=== PATIENT | male | born 1960 | race African-American/Black ===

== ENCOUNTER 2018-10-17 18:13 | Inpatient (IN) ==
[2018-10-17] MEDS ORDERED: ASPIRIN CHEW 81 MG TABLET PO STA (18:19)
[2018-10-17] MEDS ORDERED: HEPARIN 1,000 UNIT/1 ML VIAL IV STA (18:21)
[2018-10-17] MEDS ORDERED: HEPARIN 5,000 UNIT/1 ML VIAL ONE (18:21)
[2018-10-17 18:27] LABS: Basophils # 0.1 10*3/uL (0.0-0.2); Basophils % 0.8 % (0.0-0.8); Eosinophils # 0.2 10*3/uL (0.0-0.87); Eosinophils % 2.2 % (0.00-10.9); Hemoglobin 14.7 GM/DL (14.0-18.0); Immature Granulocytes % 0.2 %; Immature Granulocytes Absolute 0.02 #; Lymphocytes # 4.8 10*3/uL (1.4-4.0); Lymphocytes % 52.6 % (21.2-54.2); Mean Corpuscular HGB Conc 33.4 GM/DL (32-36); Mean Corpuscular Hemoglobin 31 PG (27-34); Mean Corpuscular Volume 91.9 FL (87-102); Mean Platelet Volume 9.3 FL (9.6-12.0); Monocytes # 0.6 10*3/uL (0.11-0.8); Monocytes % 6.9 % (1.7-12.7); Neutrophils # 3.4 10*3/uL (1.4-7.4); Neutrophils % 37.3 % (38.7-73.9); Platelet Count 344 T/CUMM (130-400); Red Blood Count 4.79 MC/CUMM (3.8-5.5); Red Cell Distribution Width 13.1 % (9.3-17.3); White Blood Count 9.2 T/CUMM (4-12)
[2018-10-17] MEDS ORDERED: SODIUM CHLORIDE 0.9% 1,000 ML IV STA (18:30)
[2018-10-17 18:45] LABS: Alanine Aminotransferase 28 U/L (16-61); Albumin 3.3 G/DL (3.4-5.0); Alkaline Phosphatase 55 U/L (45-117); Aspartate Amino Transferase 18 U/L (0-37); Bilirubin,Total < 0.39 MG/DL (0.2-1.0); Blood Urea Nitrogen 14 MG/DL (7-18); Calcium 8.4 MG/DL (8.5-10.1); Glucose 142 MG/DL (74-106); Potassium 3.6 MMOL/L (3.5-5.1); Sodium 143 MMOL/L (136-145); Total Protein 6.1 G/DL (6.4-8.3)
[2018-10-17 19:26] LABS: Eosinophils 5 % (0-10); Lymphocytes 48 % (20-55); Segmented Neutrophils 40 % (50-85); Total Cells Counted 100
[2018-10-17 19:27] LABS: Platelet Estimate Normal
[2018-10-17] MEDS ORDERED: ZALEPLON 5 MG CAPSULE PO PRN (19:36)
[2018-10-17] MEDS ORDERED: NITROGLYCERIN SL 0.4 MG TABLET SL PRN (19:36)
[2018-10-17] MEDS ORDERED: ACETAMINOPHEN 325 MG TABLET PO PRN (19:36)
[2018-10-17] MEDS: TIROFIBAN 5,000 MCG/100 ML PREMIX IV SCH (20:23)
[2018-10-17] MEDS ORDERED: TICAGRELOR 90 MG TABLET PO SCH (21:00)
[2018-10-17 21:35] LABS: CKMB % 6.7 %
[2018-10-17] MEDS: METOPROLOL TARTRATE 25 MG TABLET PO SCH (22:00)
[2018-10-17] MEDS: HYDROmorphone 2 MG/1 ML VIAL IV PRN (22:10)
[2018-10-18 01:23] LABS: Barbiturates Screen,Urine Negative (Negative); Benzodiazepines Screen,Urine Positive (Negative); Cannabinoid Screen,Urine Negative (Negative); Opiate Screen,Urine Positive (Negative); Phencyclidine Screen,Urine Negative (Negative)
[2018-10-18] MEDS: HYDROmorphone 2 MG/1 ML VIAL IV PRN ×3 (03:30→13:59)
[2018-10-18] MEDS: TIROFIBAN 5,000 MCG/100 ML PREMIX IV SCH ×2 (03:47→11:40)
[2018-10-18 04:48] LABS: Basophils % 0.3 % (0.0-0.8); Eosinophils % 0.1 % (0.00-10.9); Hematocrit 43.3 VOL% (42.0-52.0); Hemoglobin 14.2 GM/DL (14.0-18.0); Immature Granulocytes % 0.5 %; Immature Granulocytes Absolute 0.06 #; Lymphocytes # 1.6 10*3/uL (1.4-4.0); Lymphocytes % 13.6 % (21.2-54.2); Mean Corpuscular HGB Conc 32.8 GM/DL (32-36); Mean Corpuscular Hemoglobin 30 PG (27-34); Mean Corpuscular Volume 91.7 FL (87-102); Mean Platelet Volume 9.8 FL (9.6-12.0); Monocytes # 0.8 10*3/uL (0.11-0.8); Monocytes % 6.9 % (1.7-12.7); Neutrophils % 78.6 % (38.7-73.9); Platelet Count 334 T/CUMM (130-400); Red Blood Count 4.72 MC/CUMM (3.8-5.5); Red Cell Distribution Width 13.2 % (9.3-17.3); White Blood Count 11.4 T/CUMM (4-12)
[2018-10-18 06:29] LABS: Blood Urea Nitrogen 12 MG/DL (7-18); CKMB % 8.3 %; Calcium 8.5 MG/DL (8.5-10.1); Glucose 107 MG/DL (74-106); Osmolality,Calculated 278.4 MOS/KG (273-304); Potassium 4.4 MMOL/L (3.5-5.1); Sodium 140 MMOL/L (136-145)
[2018-10-18 06:50] LABS: Troponin I > 200.000 NG/ML (0.00-0.045)
[2018-10-18] MEDS: METOPROLOL TARTRATE 25 MG TABLET PO SCH ×2 (08:51→16:21)
[2018-10-18] MEDS: TICAGRELOR 90 MG TABLET PO SCH ×2 (08:52→21:30)
[2018-10-18] MEDS: ASPIRIN EC 81 MG TABLET PO SCH (08:52)
[2018-10-18] MEDS: ROSUVASTATIN 20 MG TABLET PO SCH (08:52)
[2018-10-18] MEDS: NICOTINE 21 MG/24 HR PATCH TRANSDERM SCH (08:59)
[2018-10-18] MEDS: COLCHICINE 0.6 MG CAPSULE PO SCH ×2 (09:01→21:30)
[2018-10-18 11:33] LABS: CKMB % 7.8 %
[2018-10-18 11:36] LABS: Troponin I > 200.000 NG/ML (0.00-0.045)
[2018-10-18] MEDS: CLORAZEPATE 3.75 MG TABLET PO PRN (14:01)
[2018-10-18] MEDS: ONDANSETRON 4 MG/2 ML VIAL IV PRN ×2 (14:01→18:50)
[2018-10-18] MEDS ORDERED: KETOROLAC 30 MG/1 ML VIAL IV ONE (14:09)
[2018-10-18] MEDS ORDERED: MORPHINE 4 MG/1 ML VIAL IV PRN (14:09)
[2018-10-18] MEDS ORDERED: LORazepam 0.5 MG TABLET PO PRN (15:43)
[2018-10-18] MEDS: LISINOPRIL 2.5 MG TABLET PO SCH ×2 (16:42→21:29)
[2018-10-18] MEDS: diphenhydrAMINE CAP 25 MG CAPSULE PO PRN (21:29)
[2018-10-18] MEDS: METOPROLOL SUCCINATE XL 25 MG TABLET PO SCH (21:30)
[2018-10-19 04:39] LABS: Basophils % 0.2 % (0.0-0.8); Eosinophils % 0.4 % (0.00-10.9); Immature Granulocytes % 0.4 %; Immature Granulocytes Absolute 0.04 #; Lymphocytes # 1.4 10*3/uL (1.4-4.0); Lymphocytes % 12.6 % (21.2-54.2); Mean Corpuscular HGB Conc 32.6 GM/DL (32-36); Mean Corpuscular Hemoglobin 30 PG (27-34); Mean Corpuscular Volume 93.3 FL (87-102); Mean Platelet Volume 10.1 FL (9.6-12.0); Monocytes # 1.1 10*3/uL (0.11-0.8); Monocytes % 9.6 % (1.7-12.7); Neutrophils # 8.8 10*3/uL (1.4-7.4); Neutrophils % 76.8 % (38.7-73.9); Platelet Count 245 T/CUMM (130-400); Red Blood Count 4.61 MC/CUMM (3.8-5.5); Red Cell Distribution Width 13.2 % (9.3-17.3); White Blood Count 11.4 T/CUMM (4-12)
[2018-10-19 05:00] LABS: Calcium 8.6 MG/DL (8.5-10.1); Osmolality,Calculated 276.5 MOS/KG (273-304); Potassium 4.3 MMOL/L (3.5-5.1)
[2018-10-19] MEDS ORDERED: MAGNESIUM HYDROXIDE SUSP 30 ML UDCUP PO PRN (05:47)
[2018-10-19] MEDS: SIMETHICONE CHEW 125 MG TABLET PO PRN ×3 (06:18→14:28)
[2018-10-19] MEDS ORDERED: PANTOPRAZOLE 40 MG VIAL IV ONE (09:10)
[2018-10-19] MEDS: ROSUVASTATIN 20 MG TABLET PO SCH (09:30)
[2018-10-19] MEDS: NICOTINE 21 MG/24 HR PATCH TRANSDERM SCH (09:31)
[2018-10-19] MEDS: ASPIRIN EC 81 MG TABLET PO SCH (09:31)
[2018-10-19] MEDS: TICAGRELOR 90 MG TABLET PO SCH ×2 (09:31→21:40)
[2018-10-19] MEDS: METOPROLOL SUCCINATE XL 25 MG TABLET PO SCH ×2 (09:31→21:40)
[2018-10-19] MEDS: PANTOPRAZOLE 40 MG TABLET PO SCH (09:31)
[2018-10-19] MEDS: ALUMINUM/MAGNES/SIMETH MAX STR 30 ML UDCUP PO PRN ×2 (09:54→14:28)
[2018-10-19] MEDS: LISINOPRIL 2.5 MG TABLET PO SCH ×2 (09:54→21:40)
[2018-10-19] MEDS: CLORAZEPATE 3.75 MG TABLET PO PRN (09:57)
[2018-10-19] MEDS ORDERED: BISACODYL 5 MG TABLET PO PRN (12:09)
[2018-10-19] MEDS: POLYETHYLENE GLYCOL POWDER 17 GM PACK PO SCH (12:51)
[2018-10-19 17:27] LABS: CKMB % 2.2 %
[2018-10-19 17:32] LABS: Troponin I 82.4 NG/ML (0.00-0.045)
[2018-10-19] MEDS ORDERED: FAMOTIDINE 20 MG TABLET PO SCH (21:00)
[2018-10-19] MEDS: diphenhydrAMINE CAP 25 MG CAPSULE PO PRN (21:40)
[2018-10-20 08:00] VITALS: BP 93/67
[2018-10-20] MEDS: NICOTINE 21 MG/24 HR PATCH TRANSDERM SCH (10:37)
[2018-10-20] MEDS: LISINOPRIL 2.5 MG TABLET PO SCH (10:38)
[2018-10-20] MEDS: CLORAZEPATE 3.75 MG TABLET PO PRN (10:39)
[2018-10-20] MEDS: ROSUVASTATIN 20 MG TABLET PO SCH (10:39)
[2018-10-20] MEDS: PANTOPRAZOLE 40 MG TABLET PO SCH (10:39)
[2018-10-20] MEDS: METOPROLOL SUCCINATE XL 25 MG TABLET PO SCH (10:39)
[2018-10-20] MEDS: ASPIRIN EC 81 MG TABLET PO SCH (10:39)
[2018-10-20] MEDS: POLYETHYLENE GLYCOL POWDER 17 GM PACK PO SCH (10:40)
[2018-10-20] MEDS: TICAGRELOR 90 MG TABLET PO SCH (10:40)
== END 2018-10-20 12:14 | disposition home or self-care (01) | DRG 247 ==
LOC: EDUNIT# → EDBD → N.ED 18:13 → N.CL 18:31 → N.CC 20:14 → N.TELEN 10-19 13:17
PROVIDERS: ADMIT Internal Medicine Cardiovascular Disease; ATTEND Internal Medicine Cardiovascular Disease
PROC: CLCCHCL (ICD-10-PCS; 2018-10-17 19:15)

== ENCOUNTER 2018-11-29 16:02 | Observation (INO) ==
[2018-11-29] MEDS ORDERED: ASPIRIN 325 MG TABLET PO STA (16:33)
[2018-11-29 16:58] LABS: Basophils % 0.7 % (0.0-0.8); Eosinophils # 0.3 10*3/uL (0.0-0.87); Eosinophils % 4.6 % (0.00-10.9); Hemoglobin 13.7 GM/DL (14.0-18.0); Immature Granulocytes % 0.3 %; Immature Granulocytes Absolute 0.02 #; Lymphocytes # 2.7 10*3/uL (1.4-4.0); Lymphocytes % 44.7 % (21.2-54.2); Mean Corpuscular HGB Conc 33.4 GM/DL (32-36); Mean Corpuscular Hemoglobin 30 PG (27-34); Mean Corpuscular Volume 90.3 FL (87-102); Mean Platelet Volume 11.1 FL (9.6-12.0); Monocytes # 0.6 10*3/uL (0.11-0.8); Monocytes % 10.4 % (1.7-12.7); Neutrophils # 2.4 10*3/uL (1.4-7.4); Neutrophils % 39.3 % (38.7-73.9); Platelet Count 186 T/CUMM (130-400); Red Blood Count 4.54 MC/CUMM (3.8-5.5); Red Cell Distribution Width 12.8 % (9.3-17.3); White Blood Count 6.1 T/CUMM (4-12)
[2018-11-29 17:07] LABS: Alanine Aminotransferase 28 U/L (16-61); Alkaline Phosphatase 83 U/L (45-117); Aspartate Amino Transferase 20 U/L (0-37); Bilirubin,Total < 0.39 MG/DL (0.2-1.0); Blood Urea Nitrogen 16 MG/DL (7-18); Calcium 8.7 MG/DL (8.5-10.1); Glucose 84 MG/DL (74-106); Osmolality,Calculated 280.3 MOS/KG (273-304); Potassium 3.9 MMOL/L (3.5-5.1); Sodium 141 MMOL/L (136-145); Total Protein 7.7 G/DL (6.4-8.3)
[2018-11-29] MEDS ORDERED: ONDANSETRON 4 MG/2 ML VIAL IV PRN (20:19)
[2018-11-29] MEDS ORDERED: DOCUSATE SODIUM 100 MG CAPSULE PO PRN (20:19)
[2018-11-29] MEDS ORDERED: MAGNESIUM SULF RIDER 2 GM in PREMIX 1 EACH IV PRN (20:38)
[2018-11-29] MEDS ORDERED: MAGNESIUM SULF RIDER 4 GM in PREMIX 1 EACH IV PRN (20:38)
[2018-11-29] MEDS ORDERED: ENOXAPARIN 40 MG/0.4 ML SYRINGE SUBCUT SCH (21:00)
[2018-11-29] MEDS: METOPROLOL TARTRATE 50 MG TABLET PO SCH (21:27)
[2018-11-29] MEDS: LISINOPRIL 2.5 MG TABLET PO SCH (21:29)
[2018-11-29] MEDS: MECLIZINE 12.5 MG TABLET PO SCH (21:44)
[2018-11-30 05:09] LABS: Basophils % 0.7 % (0.0-0.8); Eosinophils # 0.3 10*3/uL (0.0-0.87); Hematocrit 39.5 VOL% (42.0-52.0); Hemoglobin 13.1 GM/DL (14.0-18.0); Immature Granulocytes % 0.2 %; Immature Granulocytes Absolute 0.01 #; Lymphocytes # 2.5 10*3/uL (1.4-4.0); Lymphocytes % 44.4 % (21.2-54.2); Mean Corpuscular HGB Conc 33.2 GM/DL (32-36); Mean Corpuscular Hemoglobin 30 PG (27-34); Mean Corpuscular Volume 91.6 FL (87-102); Mean Platelet Volume 10.9 FL (9.6-12.0); Monocytes # 0.5 10*3/uL (0.11-0.8); Monocytes % 9.1 % (1.7-12.7); Neutrophils # 2.3 10*3/uL (1.4-7.4); Neutrophils % 40.6 % (38.7-73.9); Platelet Count 156 T/CUMM (130-400); Red Blood Count 4.31 MC/CUMM (3.8-5.5); Red Cell Distribution Width 12.6 % (9.3-17.3); White Blood Count 5.6 T/CUMM (4-12)
[2018-11-30 05:22] LABS: Calcium 8.6 MG/DL (8.5-10.1); Potassium 3.8 MMOL/L (3.5-5.1)
[2018-11-30] MEDS ORDERED: CLOPIDOGREL 75 MG TABLET PO SCH (09:00)
[2018-11-30] MEDS ORDERED: PANTOPRAZOLE 40 MG TABLET PO SCH (09:00)
[2018-11-30] MEDS ORDERED: ASPIRIN EC 81 MG TABLET PO SCH (09:00)
[2018-11-30] MEDS ORDERED: FUROSEMIDE 40 MG TABLET PO SCH (09:00)
[2018-11-30 10:46] LABS: Risk Ratio 4.42; VLDL CHOLESTEROL 27.8 MG/DL
[2018-11-30 11:40] LABS: Troponin I 0.525 NG/ML (0.00-0.045)
[2018-11-30] MEDS: LISINOPRIL 2.5 MG TABLET PO SCH (12:12)
[2018-11-30] MEDS: MECLIZINE 12.5 MG TABLET PO SCH ×2 (12:14→14:45)
[2018-11-30] MEDS: METOPROLOL TARTRATE 50 MG TABLET PO SCH (12:14)
[2018-11-30 12:32] LABS: Barbiturates Screen,Urine Negative (Negative); Benzodiazepines Screen,Urine Negative (Negative); Cannabinoid Screen,Urine Negative (Negative); Opiate Screen,Urine Negative (Negative); Phencyclidine Screen,Urine Negative (Negative)
[2018-11-30 14:12] LABS: Troponin I 0.522 NG/ML (0.00-0.045)
[2018-11-30 15:56] VITALS: BP 100/67
[2018-11-30] MEDS ORDERED: METOPROLOL SUCCINATE XL 25 MG TABLET PO SCH (21:00)
[2018-11-30] MEDS ORDERED: ATORVASTATIN 40 MG TABLET PO SCH (21:00)
== END 2018-11-30 17:58 | disposition home or self-care (01) ==
LOC: N.EDINP 16:02 → N.ED 16:02 → N.TELES 21:00
PROVIDERS: ADMIT Internal Medicine; ATTEND Internal Medicine